=== PATIENT | male | born 1955 | race Caucasian/White ===

== ENCOUNTER 2016-12-15 12:37 | Observation (INO) | payer OTHER ==
[2016-12-15] MEDS ORDERED: Aspirin Low Dose CHEW TAB* 81 MG PO ONE (12:54)
[2016-12-15 13:24] LABS: Hematocrit 43 % (42-52); Hemoglobin 14.7 g/dl (14.0-18.0); Mean Corpuscular HGB Conc 34 g/dl (31-36); Mean Corpuscular Hemoglobin 29 pg (27-31); Mean Corpuscular Volume 83 fL (80-94); Mean Platelet Volume 7 um3 (7.4-10.4); Red Blood Count 5.17 10^6/ul (4.0-5.4); Red Cell Distribution Width 16 % (10.5-15); White Blood Count 7.5 10^3/ul (3.5-10.8)
--- NOTE | 2016-12-15 13:44 | RAD ---
Indication: Intermittent LEFT side chest pain since yesterday. History of tobacco use. Comparison: April 05, 2016 chest radiograph and May 05, [address] Technique: Upright AP 1311 hours Report: Mildly elevated lung volumes. No focal pulmonary lesion, compelling alveolar consolidation, pleural effusion, pneumothorax. Negative for cardiomegaly. Unremarkable central pulmonary vasculature. Accounting for LEFT convex curve of the mid to distal thoracic spine the mediastinal contours are unremarkable. Negative for free air beneath the diaphragm. No rib fracture evident. IMPRESSION: No evidence for acute intrathoracic disease. Elevated lung volumes suggest potential chronic obstructive pulmonary disease.
[2016-12-15 13:45] LABS: BUN/Creatinine Ratio 21.7 (8-20); EGFR African American 121.5 (>60); EGFR Non-African American 94.5 (>60); Globulin 2.7 g/dL (2-4); Potassium 3.8 mmol/L (3.5-5.0); Total Bilirubin 0.6 mg/dL (0.2-1.0); Total Protein 6.7 g/dL (6.4-8.9)
[2016-12-15] MEDS ORDERED: Acetaminophen TAB* 325 MG PO PRN (15:18)
[2016-12-15] MEDS ORDERED: traZODone TAB* 100 MG PO SCH (21:00)
[2016-12-15] MEDS ORDERED: Atorvastatin* 20 MG TAB PO SCH (21:00)
--- NOTE | 2016-12-15 23:05 | HP ---
CC: Dr. Sabine Skinner * HISTORY AND PHYSICAL: DATE OF ADMISSION: 12/15/16 PRIMARY CARE PROVIDER: Dr. Sabine Skinner. CONCRETE FOREMAN: Dr. Chandler. CHIEF COMPLAINT: Chest discomfort. HISTORY OF PRESENT ILLNESS: Mr. Juarez is a 61-year-old male with a known history of coronary artery disease, status post stenting in 2009; hyperlipidemia ; depression, who presented to the emergency room with complaints of chest discomfort. The patient states that this past Friday, he had what felt like bad gas. He states he felt it up in his back and then in his shoulder blades. Yesterday, he states that he was working in his yard and around the pool and felt very exhausted. He was unable to finish the work he needed to do. The patient states that today when finishing the work, he was, what he describes as , panting. He states that with that, he felt lightheaded and mild chest discomfort on the left side. The patient states that the chest discomfort will come anytime he does any activity, though it is usually even just minimal activity. He states that as soon as he sits down, the chest discomfort goes away. He denies any associated palpitations, diaphoresis, or nausea. The patient does state that this feels different than his ME, but does feel similar to the events leading up to his ME. PAST MEDICAL HISTORY: 1. Coronary artery disease, status post stenting, 2009. 2. Hyperlipidemia. 3. Depression. PAST SURGICAL HISTORY: 1. Laparoscopic appendectomy. 2. Deviated septum repair. 3. Left ear surgery. MEDICATIONS: 1. Bupropion 100 mg p.o. daily. 2. Sertraline 100 mg p.o. daily. 3. Aspirin 81 mg p.o. daily. 4. Trazodone 100 mg p.o. at bedtime. 5. Lipitor 20 mg p.o. q.h.s. ALLERGIES: No known drug allergies. FAMILY HISTORY: Dad at the age of 84 of heart disease. Mom at the age of 73 of cerebral hemorrhage. SOCIAL HISTORY: The patient is a former smoker of approximately 1 pack per day for 15 years. He quit greater than a year ago. He drinks alcohol rarely. 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 He is . He has 3 children. His , Jenny, is his healthcare proxy. REVIEW OF SYSTEMS: The patient denies any fevers, chills, or anorexia. He admits to chest discomfort and shortness of breath as above. No cough, no sputum production. No nausea, vomiting, abdominal pain, constipation, diarrhea , or hematochezia. No hematuria, no dysuria. No focal weakness or sensory loss. No sudden changes in vision. No dysphagia. No joint pains or muscle pains out of the ordinary. No rashes. He does admit to anxiety and depression. PHYSICAL EXAMINATION GENERAL: The patient is a well-developed, middle-aged male, sitting up in the bed, in no acute distress. VITAL SIGNS: Blood pressure 144/69, pulse 72, respirations 13, temp 98.2, and O2 sat 96% on room air. HEENT: Pupils are equal, they are round, they react to light. Extraocular muscles are intact. Oropharynx is clear. Oral mucosa is moist. There is no submandibular, cervical, or supraclavicular adenopathy. NECK: Thyroid is not enlarged. No thyroid nodules are noted. PULMONARY: Lungs are clear to auscultation bilaterally. CARDIAC: Normal S1, S2. Regular rate and rhythm. I do not appreciate any murmurs. There is no pain to palpation of the anterior chest wall. There is no lower extremity edema. ABDOMEN: Bowel sounds are present. Abdomen is soft, nontender, nondistended. MUSCULOSKELETAL: There is no cyanosis or clubbing of the digits. There is full active range of motion of all 4 extremities. NEURO: Cranial nerves II through XII are grossly intact. Sensation is intact to light touch throughout. Strength is 5/5 and symmetric in both upper and lower extremities bilaterally. PSYCH: The patient is alert. He is oriented x3. Affect appears appropriate. SKIN: Warm and dry. There are no rashes. DIAGNOSTIC STUDIES/LAB DATA: WBC 7.5, hemoglobin 14.7, hematocrit 43, platelets 176. D-dimer less than 200. Sodium 138, potassium 3.8, chloride 106 , CO2 25, BUN 18, creatinine 0.83, glucose 164, lactic acid 1.5, calcium 9.0. Bilirubin 0.6, AST 20, ALT 26, alk phos 40. Troponin 0. Albumin 4.0. EKG: Normal sinus rhythm without any acute ST-T wave abnormalities. Chest x-ray: No evidence for acute intrathoracic disease, elevated lung volumes suggesting potential chronic obstructive pulmonary disease. ASSESSMENT AND PLAN: Mr. Juarez is a 61-year-old male with a known history of coronary artery disease, past history of tobacco abuse, and hyperlipidemia, who presents to the emergency room with complaints of chest discomfort with activity. 1. Chest discomfort. I am very concerned about the patient's story. He states over the last of couple days, anytime he does any activity, he does develop chest discomfort. When he sits down, it goes away. The patient has a known history of coronary artery disease. His last catheterization report is not known to myself. The patient will be ruled out for myocardial infarction with serial troponins. If he rules out, he will undergo exercise nuclear stress test tomorrow. If he rules in or if the stress test is abnormal, biometrics consultant will be contacted. The patient will be maintained on his usual dose of aspirin and Lipitor. 2. Hyperlipidemia. Continue Lipitor. 3. Depression. Continue bupropion, sertraline, and trazodone. 4. DVT prophylaxis. According to the Adult Thrombosis Prophylaxis Risk Factor Assessment Guide, the patient has a total risk factor score of 1, making him low risk. Ambulation will be utilized as DVT prophylaxis. 5. Code status is full. TIME SPENT: Sixty-five minutes was spent admitting this patient. [id number]/[facility] #: [id number] KARMA
[2016-12-16] MEDS ORDERED: Aminophylline IV* 25 MG/ML 10 ML VIAL ONE (08:12)
[2016-12-16] MEDS ORDERED: Regadenoson* 0.4 MG/5 ML SYRINGE ONE (08:12)
[2016-12-16] MEDS ORDERED: Influenza VAC *QUAD* 2017-18* 0.5 ML SYRINGE IM ONE (09:00)
[2016-12-16] MEDS ORDERED: Aspirin EC Low Dose* 81 MG TAB.EC PO SCH (09:00)
[2016-12-16] MEDS ORDERED: buPROPion TAB* 100 MG PO SCH (09:00)
[2016-12-16] MEDS ORDERED: Sertraline* 100 MG TAB PO SCH (09:00)
--- NOTE | 2016-12-16 10:39 | RAD ---
HISTORY: Evaluate for ischemia, chest pain, shortness breath, previous MD, hyperlipidemia, cardiac catheterization, family history of heart disease COMPARISONS: None available at the time of dictation TECHNIQUE: A 1 day stress/rest myocardial perfusion study was performed, with exercise stress. The exercise portion was performed using the Eric protocol, for a total METs of 12.8. The stress portion was monitored by Dr. Chandler. Gated SPECT imaging was performed, with CT-based attenuation correction DOSE: Stress: Technetium 99m tetrofosmin, 25.15 millicuries, injected at 8:33 AM on December 16, 2016 Rest: Technetium 99m tetrofosmin, 10.73 millicuries, injected at 6:35 AM and December 16, 2016 Pharmacologic agent: None FINDINGS: CARDIAC MONITORING: Peak heart rate of 150 bpm, 94% of predicted. Borderline ST changes EF: 66 % TID: 1.02 MOTION: Normal motion, with normal wall thickening. PERFUSION: There is a small reversible defect of the anterior wall towards the base suggestive of ischemia. There is a fixed defect of inferior wall that resolves with attenuation correction suggestive of artifact OTHER: None IMPRESSION: SMALL REVERSIBLE PERFUSION DEFECT OF THE ANTERIOR WALL CONSISTENT WITH A SMALL AREA OF ISCHEMIA ASSESSMENT: LOW RISK. Based on imaging criteria from ACC/AHA 2002. Guideline Update for the Management of Patient's with Chronic Stable Angina, table 23. Noninvasive Risk Stratification.
[2016-12-16] MEDS ORDERED: Metoprolol Succinate XL TAB* 25 MG PO ONE (13:38)
[2016-12-16 13:57] VITALS: BP 110/68
--- NOTE | 2016-12-17 04:29 | DS ---
CC: Dr. Skinner; Dr. Chandler * DISCHARGE SUMMARY: DATE OF ADMISSION: 12/15/16 DATE OF DISCHARGE: 12/16/16 PRIMARY CARE PROVIDER: Dr. Skinner. DISCHARGE DIAGNOSIS: Chest pain with low probability cardiac stress test that did show a small area of ischemia in the anterior wall. At this point, the chest pain could be due to angina. SECONDARY DIAGNOSES: 1. History of coronary artery disease, status post stenting in 2009. 2. Hyperlipidemia. 3. Depression. 4. History of laparoscopic appendectomy. 5. Deviated septum repair. 6. Left ear surgery. MEDICATIONS AT DISCHARGE: Include: 1. Toprol-XL 25 mg daily. 2. Lipitor 20 mg daily. 3. Aspirin 81 mg daily. 4. Zoloft 100 mg daily. 5. Wellbutrin 100 mg daily. 6. Trazodone 100 mg at bedtime. LABORATORY DATA AND STUDIES PERFORMED DURING THE HOSPITAL STAY: Included: Troponins were 0 throughout the patient's hospital stay. The patient's D-dimer was below 200. The patient's treadmill cardiac stress test, the nuclear portion showed small reversible perfusion defect of the anterior wall consistent with a small area of ischemia with an EF noted to be at 66% and normal motion and normal wall thickening. It was assessed as low risk. The treadmill portion of the stress test showed that patient exercised for 11 minutes without any symptoms. He has some flattening of T-waves at the end of his stress test. His systolic pressures at the end of the stress test were 240. HOSPITALIZATION COURSE: Bowen Juarez is a 61-year-old male with history of coronary artery disease with cardiac stenting in 2009, who presented complaining of chest pain that occurred at the end of him putting down an outdoor pool for the season. Patient stated that he worked himself up all day. He was carrying multiple parts of the outside pool that included heavy ladders. At the end of the day, he stated that he felt "wasted." He also started experiencing chest pain that lasted minutes and stopped when he stopped his exercise. He came into the hospital for evaluation. Here, he was on the telemetry monitored bed without evidence of arrhythmias. His troponins continued to be 0 throughout his hospital stay and patient continued to be symptomatic. He underwent a cardiac stress test in the morning, which showed hypertensive response at the end of the stress test. The patient also had a small area of anterior ischemia visualized on the nuclear cardiac stress test. I discussed the case with Dr. Chandler, who recommended for the time being to continue treating patient medically and starting him on a beta- ronda. Patient was recommended to go home and do not perform any strenuous exercise until he sees Dr. Chandler within the next 2 weeks for followup. He was started on metoprolol with good response or if the heart rate remaining in the 70s and his blood pressure at 110/68 at discharge. PHYSICAL EXAMINATION: At discharge is unchanged from admission. [id number]/[facility] #: [id number] [facility]
== END 2016-12-16 17:50 | disposition home or self-care (01) ==
LOC: ED 12:37 → MEDTELE 14:55
PROVIDERS: ADMIT Hospitalist; ATTEND Internal Medicine
DX: R07.89 Other chest pain (principal); I25.9 Chronic ischemic heart disease, unspecified; I25.10 Atherosclerotic heart disease of native coronary artery without angina pectoris; I25.2 Old myocardial infarction; Z95.5 Presence of coronary angioplasty implant and graft; E78.5 Hyperlipidemia, unspecified; R42 Dizziness and giddiness; F32.9 Major depressive disorder, single episode, unspecified; Z79.899 Other long term (current) drug therapy; Z87.891 Personal history of nicotine dependence; Z23 Encounter for immunization
CPT/HCPCS: 36415; 71010; 78452; 80053; 83605; 84484; 85025; 85379; 90471; 90686; 93005; 93017; 99283; A9270-GY; A9502; G0008; G0378; J0280; J2785

== ENCOUNTER 2018-11-02 17:10 | Emergency (ER) | payer OTHER ==
[2018-11-02 17:21] VITALS: BP 152/86
--- OUTSIDE RECORDS SUMMARY | 2018-11-02 17:27 | XMS REPORT | Continuity of Care Document ---
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 [place] [address] Problems Active Problems Provider Date Hyperlipidemia Sabine Skinner M.D. Onset: 04/05/2016 Bipolar disorder Sabine Skinner M.D. Onset: 04/05/2016 Impaired fasting glycaemia Sabine Skinner M.D. Onset: 04/10/2016 Coronary atherosclerosis Sabine Skinner M.D. Onset: 02/15/2015 Family History Date Family Member(s) Observation Comments Father [place] Father Coronary Artery Disease (CAD) Mother Aneurysm Mother Chronic Obstructive Pulmonary Disease (COPD) Social History Type Date Description Comments Sex Unknown Lives With Spouse Occupation [employer] Tobacco Use Start: Unknown End: Former Cigarette Smoker Unknown ETOH Use Social Alcohol Recreational Drug Use Denies Drug Use Tobacco Use Start: Unknown End: Patient is a former smoker Unknown Smoking Status Reviewed: 10/20/18 Patient is a former smoker Exercise Type/Frequency Exercises rarely Allergies, Adverse Reactions, Alerts Description No Known Drug Allergies Medications Active Medications SIG Qnty Indications Ordering Date Provider Amoxicillin take one by 14tabs J03.90 Emma Diallo 10/15/2018 875mg Tablets mouth twice IDA Centeno daily for 7 days Tadalafil take 1 tablet by 6Tablet N52.8 Bruce Humphrey 09/11/2018 20mg Tablets mouth every day MD Germain as needed Sertraline HCL Take 1 Tablet 90tabs Bruce Humphrey 06/19/2018 100mg Daily MD Germain Tablets Vitamin D 1 by mouth every Unknown 2000Unit day Capsules non-childproof cap please Multivitamins 1 by mouth every Unknown Capsules day Atorvastatin Calcium 1 by mouth every 90tabs Bruce Humphrey 20mg day MD Germain Tablets Trazodone HCL Take 1 Tablet AT 90tabs Germain, 100mg Bedtime Bruce Louise MD Tablets Aspirin 1 by mouth every Unknown 81mg Tablets DR day History Medications Aspirin Ec 1 tab by mouth Sabine Skinner, 06/07/2016 - 325mg Tablets DR every day M.DTammy 12/19/2016 Azithromycin 2 tabs today, 6tabs R05 Sabine Skinner, 04/05/2016 - 250mg Tablets then 1 tab daily M.D. 06/07/2016 for next 4 days Cialis 1 tablet 30 min 10tabs N52.8 Kathi Potter, 02/15/2016 - 20mg Tablets before sexual [facility] 12/19/2016 activity, will last 36 hr Wellbutrin XL 1 by mouth every 30tabs Bruce Vásquez 01/23/2016 - 300mg Tablets day Joey Elias 12/19/2016 ER 24HR Cialis take 1 tablet 30tabs N52.8 Kathi Potter, 12/02/2015 - 5mg Tablets every day as [facility] 02/15/2016 directed Cheratussin ac 1-2 teaspoon 120ml Kathi Potter, 05/05/2015 - 100-10mg/5ML every 6h [facility] 05/24/2015 Solution Azithromycin take 2 tablets by 12tabs J01.90 Kathi Potter, 05/02/2015 - 250mg Tablets mouth x 3d then [facility] 05/24/2015 take 1 tablet daily for next 6 days Tramadol HCL 1-2 by mouth 30tabs Chanda 03/01/2015 - 50mg Tablets every 6 hours as Bayron, 05/24/2015 needed Afnp-C Cyclobenzaprine HCL 1 by mouth three 30tabs M54.5 Chanda 02/28/2015 - 10mg times a day as Bayron, 03/10/2015 Tablets needed Afnp-C Physical Therapy treatment and M54.5 Chanda 02/28/2015 - evaluation of ellie Verma, 05/24/2015 back pain Afnp-C Vitamin C 1 by mouth daily Yaya Silvestre 02/15/2015 - Joey 12/01/2015 Wellbutrin SR 1 by mouth qd 30tabs Unknown - 300 Tablets 01/23/2016 ER 12HR Zoloft 1 by mouth every 90tabs Emma Diallo - 100mg Tablets day IDA Centeno 06/19/2018 Latuda 1 by mouth every Unknown - 40mg Tablets day 05/02/2015 Atorvastatin Calcium 1 by mouth every Unknown - day 03/18/2016 Tablets Trazodone HCL take 1 tablet at 30tabs Bruce Vásquez - 300mg Tablets bedtime Joey Elias 03/18/2016 Toprol XL 1 by mouth every Unknown - 25mg Tablets ER day 09/11/2018 24HR Wellbutrin SR 1 by mouth every Unknown - 150mg Tablets day 09/11/2018 ER 12HR Immunizations CPT Code Status Date Vaccine Lot # [id number] Given 06/07/2016 Zostivax [id number] Given 06/07/2016 Tdap Tetanus, W Pertussis [id number] Given 01/10/2016 Influenza Vac, Quadrivalent, Slit Virus, Im Vital Signs Date Vital Result Comment 10/20/2018 4:28pm BP Systolic 138 mmHg BP Diastolic 70 mmHg Heart Rate 82 /min Body Temperature 98.8 F Respiratory Rate 16 /min Height 69.25 inches 5'9.25" Weight 174.00 lb BMI (Body Mass Index) 25.5 kg/m2 10/15/2018 4:55pm BP Systolic 110 mmHg BP Diastolic 60 mmHg Heart Rate 72 /min Body Temperature 99.6 F Respiratory Rate 16 /min Height 69.25 inches 5'9.25" Weight 176.00 lb BMI (Body Mass Index) 25.8 kg/m2 09/11/2018 3:05pm BP Systolic 110 mmHg BP Diastolic 70 mmHg Heart Rate 72 /min Body Temperature 98.8 F Respiratory Rate 17 /min Height 69.25 inches 5'9.25" Weight 173.00 lb BMI (Body Mass Index) 25.4 kg/m2 06/19/2017 4:06pm BP Systolic 142 mmHg BP Diastolic 76 mmHg Heart Rate 76 /min Body Temperature 97.9 F Respiratory Rate 16 /min Height 69.5 inches 5'9.50" Weight 189.25 lb BMI (Body Mass Index) 27.5 kg/m2 02/17/2017 1:48pm BP Systolic 142 mmHg BP Diastolic 64 mmHg Heart Rate 72 /min Body Temperature 98.2 F Respiratory Rate 16 /min Height 69.5 inches 5'9.50" Weight 184.00 lb BMI (Body Mass Index) 26.8 kg/m2 12/19/2016 11:22am BP Systolic 118 mmHg BP Diastolic 64 mmHg Heart Rate 60 /min Body Temperature 98.4 F Respiratory Rate 16 /min Height 69.5 inches 5'9.50" Weight 179.38 lb BMI (Body Mass Index) 26.1 kg/m2 06/07/2016 1:32pm BP Systolic 140 mmHg BP Diastolic 80 mmHg Heart Rate 76 /min Body Temperature 98.9 F Respiratory Rate 16 /min Height 69.5 inches 5'9.50" Weight 182.25 lb BMI (Body Mass Index) 26.5 kg/m2 04/05/2016 3:14pm BP Systolic 156 mmHg BP Diastolic 70 mmHg Heart Rate 90 /min Body Temperature 98.1 F Height 70 inches 5'10" Weight 185.50 lb BMI (Body Mass Index) 26.6 kg/m2 12/02/2015 9:53am BP Systolic 140 mmHg BP Diastolic 80 mmHg Heart Rate 66 /min Body Temperature 97.3 F Height 70 inches 5'10" Weight 176.00 lb BMI (Body Mass Index) 25.3 kg/m2 05/02/2015 3:14pm BP Systolic 136 mmHg BP Diastolic 70 mmHg Heart Rate 80 /min Body Temperature 98.8 F Respiratory Rate 16 /min Height 70 inches 5'10" Weight 177.00 lb BMI (Body Mass Index) 25.4 kg/m2 02/28/2015 11:27am BP Systolic 128 mmHg BP Diastolic 66 mmHg Heart Rate 68 /min Body Temperature 97.5 F Height 70 inches 5'10" Weight 180.00 lb BMI (Body Mass Index) 25.8 kg/m2 02/15/2015 2:19pm BP Systolic 134 mmHg BP Diastolic 64 mmHg Heart Rate 78 /min Body Temperature 99.2 F Respiratory Rate 16 /min Height 70 inches 5'10" Weight 176.00 lb BMI (Body Mass Index) 25.3 kg/m2 Results Test Date Facility Test Result H/L Range Note Laboratory test 10/15/2018 [facility] Quickstrep negative Negative finding (607)- - Comp Metabolic 03/28/2018 [facility] Sodium 140 mmol/L N 135-145 Panel Potassium 4.4 mmol/L N 3.5-5.0 Chloride 104 mmol/L N 101-111 Co2 Carbon Dioxide 31 mmol/L N 22-32 Anion Gap 5 mmol/L N 2-11 Glucose 88 mg/dL N 70-100 Blood Urea Nitrogen 16 mg/dL N 6-24 Creatinine 0.84 mg/dL N 0.67-1.17 BUN/Creatinine Ratio 19.0 N 8-20 Calcium 9.3 mg/dL N 8.6-10.3 Total Protein 6.8 g/dL N 6.4-8.9 Albumin 4.4 g/dL N 3.2-5.2 Globulin 2.4 g/dL N 2-4 Albumin/Globulin Ratio 1.8 N 1-3 Total Bilirubin 0.90 mg/dL N 0.2-1.0 Alkaline Phosphatase 54 U/L N 34-104 Alt 37 U/L N 7-52 Ast 25 U/L N 13-39 Egfr Non- 92.9 >60 Egfr 112.4 >60 1 Lipid Profile (Trig/Chol/HDL) 03/28/2018 [facility] Triglycerides 150 mg/dL 2 Cholesterol 132 mg/dL 3 HDL Cholesterol 29.8 mg/dL 4 LDL Cholesterol 72 mg/dL 5 Laboratory test finding 03/28/2018 [facility] Creatine Kinase(CK) 161 U/L N 10- 223 Lipid Profile (Trig/Chol/HDL) 04/03/2017 [facility] Triglycerides 163 mg/dL 6 Cholesterol 164 mg/dL 7 HDL Cholesterol 33.5 mg/dL 8 LDL Cholesterol 98 mg/dL 9 Laboratory test finding 04/03/2017 [facility] Alt (SGPT) 34 U/L N 7-52 Ast (Sgot) 21 U/L N 13-39 Laboratory test 12/15/2016 [facility] D Dimer Quantitative < 200 ng/mL N Less Than 230 10 finding Comp Metabolic 12/15/2016 [facility] Sodium 138 mmol/L N 133-145 Panel Potassium 3.8 mmol/L N 3.5-5.0 Chloride 106 mmol/L N 101-111 Co2 Carbon Dioxide 25 mmol/L N 22-32 Anion Gap 7 mmol/L N 2-11 Glucose 164 mg/dL High 70-100 Blood Urea Nitrogen 18 mg/dL N 6-24 Creatinine 0.83 mg/dL N 0.67-1.17 BUN/Creatinine Ratio 21.7 High 8-20 Calcium 9.0 mg/dL N 8.6-10.3 Total Protein 6.7 g/dL N 6.4-8.9 Albumin 4.0 g/dL N 3.2-5.2 Globulin 2.7 g/dL N 2-4 Albumin/Globulin Ratio 1.5 N 1-3 Total Bilirubin 0.60 mg/dL N 0.2-1.0 Alkaline Phosphatase 40 U/L N 34-104 Alt 26 U/L N 7-52 Ast 20 U/L N 13-39 Egfr Non- 94.5 N >60 Egfr 121.5 N >60 11 Laboratory test finding 12/15/2016 [facility] Troponin I 0.00 ng/mL N <0.04 Lactic Acid 1.5 mmol/L N 0.5-2.0 12 CBC Auto Diff 12/15/2016 [facility] White Blood Count 7.5 10^3/uL N 3.5-10.8 Red Blood Count 5.17 10^6/uL N 4.0-5.4 Hemoglobin 14.7 g/dL N 14.0-18.0 Hematocrit 43 % N 42-52 Mean Corpuscular Volume 83 fL N 80-94 Mean Corpuscular Hemoglobin 29 pg N 27-31 Mean Corpuscular HGB Conc 34 g/dL N 31-36 Red Cell Distribution Width 16 % High 10.5-15 Platelet Count 176 10^3/uL N 150-450 Mean Platelet Volume 7 um3 Low 7.4-10.4 Abs Neutrophils 5.0 10^3/uL N 1.5-7.7 Abs Lymphocytes 1.4 10^3/uL N 1.0-4.8 Abs Monocytes 0.4 10^3/uL N 0-0.8 Abs Eosinophils 0.6 10^3/uL N 0-0.6 Abs Basophils 0.1 10^3/uL N 0-0.2 Abs Nucleated RBC 0 10^3/uL N Granulocyte % 66.6 % N 38-83 Lymphocyte % 18.8 % Low 25-47 Monocyte % 5.5 % N 1-9 Eosinophil % 7.9 % High 0-6 Basophil % 1.2 % N 0-2 Nucleated Red Blood Cells % 0 N Laboratory test finding 06/07/2016 [place] Emma(a) PSA 2.3 ng/mL 0.0 -4.0 Complete Blood Count 06/07/2016 [place] Emma(a) WBC 7.9 x10^3/UL 3.6 -9.6 RBC 5.40 x10^6/UL 3.90-5.70 HGB 15.1 g/dL 12.1-17.2 HCT 46 % 36-50 MCV 86.0 fL 82.2-97.4 MCH 27.9 pg 27.6-33.3 MCHC 32.5 g/dL Low 33.0-35.5 RDW 15.1 % High 11.6-13.7 PLT 232 x10^3/UL 150-400 MPV 5.7 fL Low 7.4-10.4 Gran # 5.1 x10^3/UL 1.5-7.2 Lymph# 1.9 x10^3/UL 0.7-4.9 [place]# 0.9 x10^3/UL 0.1-0.9 Gran % 63.3 % 42.2-75.2 Lymph % 25.2 % 20.5-51.1 [place]% 11.5 % High 1.7-9.3 Comprehensive Metabolic 06/07/2016 Oswaldo Emma(fma) Sodium 139 mEq/L 134-149 Prof Potassium 4.2 mEq/L 3.6-5.5 Chloride 99 mEq/L 94-112 Carbon Dioxide 28 mEq/L 21-32 Glucose 87 mg/dL 70-105 BUN 16 mg/dL 6-26 Creatinine 0.7 mg/dL 0.6-1.4 BUN/Creat Ratio 22.9 CALC 8.0-36.0 Calcium 9.8 mg/dL 8.6-10.2 Total Protein 7.9 g/dL 6.4-8.3 Albumin 4.8 g/dL 3.8-5.5 Globulin 3.1 g/dL 2.0-4.8 A/G Ratio 1.5 CALC 0.6-2.3 Alk. Phosphatase 45 U/L 22-95 Alt (SGPT) 35 U/L 7-35 Ast (Sgot) 27 U/L 5-34 Total Bilirubin 0.4 mg/dL 0.2-1.3 GFR Non- >60 ml/min/1.73m^ >=60 GFR >60 ml/min/1.73m^ >=60 Laboratory test finding 05/05/2016 [facility] Lipase 16 U/L N 11.0-82.0 C Reactive Protein 52.77 mg/L High < 5.00 13 Comp Metabolic Panel 05/05/2016 [facility] Sodium 133 mmol/L N 133-145 Potassium 4.1 mmol/L N 3.5-5.0 Chloride 99 mmol/L Low 101-111 Co2 Carbon Dioxide 26 mmol/L N 22-32 Anion Gap 8 mmol/L N 2-11 Glucose 157 mg/dL High 70-100 Blood Urea Nitrogen 16 mg/dL N 6-24 Creatinine 0.77 mg/dL N 0.67-1.17 BUN/Creatinine Ratio 20.8 High 8-20 Calcium 9.4 mg/dL N 8.6-10.3 Total Protein 7.6 g/dL N 6.4-8.9 Albumin 4.4 g/dL N 3.2-5.2 Globulin 3.2 g/dL N 2-4 Albumin/Globulin Ratio 1.4 N 1-3 Total Bilirubin 0.80 mg/dL N 0.2-1.0 Alkaline Phosphatase 54 U/L N 34-104 Alt 25 U/L N 7-52 Ast 17 U/L N 13-39 Egfr Non- 103.1 N >60 Egfr 132.5 N >60 14 Laboratory test 05/05/2016 [facility] Lactic Acid 1.5 mmol/L N 0.5-2.0 15 finding CBC Auto Diff 05/05/2016 [facility] White Blood Count 14.2 10^3/uL High 3.5- 10.8 Red Blood Count 5.40 10^6/uL N 4.0-5.4 Hemoglobin 14.9 g/dL N 14.0-18.0 Hematocrit 44 % N 42-52 Mean Corpuscular Volume 82 fL N 80-94 Mean Corpuscular Hemoglobin 28 pg N 27-31 Mean Corpuscular HGB Conc 34 g/dL N 31-36 Red Cell Distribution Width 15 % N 10.5-15 Platelet Count 173 10^3/uL N 150-450 Mean Platelet Volume 7 um3 Low 7.4-10.4 Abs Neutrophils 11.3 10^3/uL High 1.5-7.7 Abs Lymphocytes 1.3 10^3/uL N 1.0-4.8 Abs Monocytes 1.0 10^3/uL High 0-0.8 Abs Eosinophils 0.5 10^3/uL N 0-0.6 Abs Basophils 0.1 10^3/uL N 0-0.2 Abs Nucleated RBC 0.02 10^3/uL N Granulocyte % 79.9 % N 38-83 Lymphocyte % 8.9 % Low 25-47 Monocyte % 7.0 % N 1-9 Eosinophil % 3.7 % N 0-6 Basophil % 0.5 % N 0-2 Nucleated Red Blood Cells % 0.1 N CBC Auto Diff 04/06/2016 [facility] White Blood Count 9.8 10^3/uL N 3.5-10.8 Red Blood Count 5.31 10^6/uL N 4.0-5.4 Hemoglobin 14.6 g/dL N 14.0-18.0 Hematocrit 44 % N 42-52 Mean Corpuscular Volume 82 fL N 80-94 Mean Corpuscular Hemoglobin 28 pg N 27-31 Mean Corpuscular HGB Conc 34 g/dL N 31-36 Red Cell Distribution Width 15 % N 10.5-15 Platelet Count 171 10^3/uL N 150-450 Mean Platelet Volume 7 um3 Low 7.4-10.4 Abs Neutrophils 5.8 10^3/uL N 1.5-7.7 Abs Lymphocytes 2.1 10^3/uL N 1.0-4.8 Abs Monocytes 0.7 10^3/uL N 0-0.8 Abs Eosinophils 1.0 10^3/uL High 0-0.6 Abs Basophils 0.1 10^3/uL N 0-0.2 Abs Nucleated RBC 0 10^3/uL N Granulocyte % 58.9 % N 38-83 Lymphocyte % 21.8 % Low 25-47 Monocyte % 7.3 % N 1-9 Eosinophil % 10.7 % High 0-6 Basophil % 1.3 % N 0-2 Nucleated Red Blood Cells % 0 N Comp Metabolic Panel 04/06/2016 [facility] Sodium 138 mmol/L N 133-145 Potassium 4.3 mmol/L N 3.5-5.0 Chloride 102 mmol/L N 101-111 Co2 Carbon Dioxide 30 mmol/L N 22-32 Anion Gap 6 mmol/L N 2-11 Glucose 95 mg/dL N 70-100 Blood Urea Nitrogen 20 mg/dL N 6-24 Creatinine 0.87 mg/dL N 0.67-1.17 BUN/Creatinine Ratio 23.0 High 8-20 Calcium 9.1 mg/dL N 8.6-10.3 Total Protein 6.8 g/dL N 6.4-8.9 Albumin 4.2 g/dL N 3.2-5.2 Globulin 2.6 g/dL N 2-4 Albumin/Globulin Ratio 1.6 N 1-3 Total Bilirubin 0.70 mg/dL N 0.2-1.0 Alkaline Phosphatase 47 U/L N 34-104 Alt 48 U/L N 7-52 Ast 26 U/L N 13-39 Egfr Non- 89.8 N >60 Egfr 115.5 N >60 16 Lipid Profile (Trig/Chol/HDL) 04/06/2016 [facility] Triglycerides 222 mg/dL N 17 Cholesterol 151 mg/dL N 18 HDL Cholesterol 29.6 mg/dL N 19 LDL Cholesterol 77 mg/dL N 20 Laboratory test 04/06/2016 [facility] TSH (Thyroid Stim 2.17 mcIU/mL N 0.34- 5.60 finding Horm) Lipid Profile 04/05/2016 [place] Emma(fma) Cholesterol 141 mg/dL 120- 200 Triglycerides 477 mg/dL High 30-200 HDL Cholesterol 30 mg/dL 30-70 LDL (Calculated) 16 CALC 0-129 VLDL Cholesterol 95 mg/dL High 0-50 HDL Risk Factor 4.7 CALC High 0.0-4.4 Comprehensive Metabolic 04/05/2016 [place] Emma(fma) Sodium 138 mEq/L 134-149 Prof Potassium 4.4 mEq/L 3.6-5.5 Chloride 100 mEq/L 94-112 Carbon Dioxide 26 mEq/L 21-32 Glucose 128 mg/dL High 70-105 BUN 22 mg/dL 6-26 Creatinine 0.9 mg/dL 0.6-1.4 BUN/Creat Ratio 24.4 CALC 8.0-36.0 Calcium 9.4 mg/dL 8.6-10.2 Total Protein 7.2 g/dL 6.4-8.3 Albumin 4.1 g/dL 3.8-5.5 Globulin 3.1 g/dL 2.0-4.8 A/G Ratio 1.3 CALC 0.6-2.3 Alk. Phosphatase 54 U/L 22-95 Alt (SGPT) 69 U/L High 7-35 Ast (Sgot) 34 U/L 5-34 Total Bilirubin 0.3 mg/dL 0.2-1.3 GFR Non- >60 ml/min/1.73m^ >=60 GFR >60 ml/min/1.73m^ >=60 Complete Blood Count 04/05/2016 Oswaldo Carter([facility]) WBC 9.1 x10^3/UL 3.6 -9.6 RBC 5.04 x10^6/UL 3.90-5.70 HGB 14.4 g/dL 12.1-17.2 HCT 42 % 36-50 MCV 84.0 fL 82.2-97.4 MCH 28.6 pg 27.6-33.3 MCHC 34.2 g/dL 33.0-35.5 RDW 15.4 % High 11.6-13.7 PLT 199 x10^3/UL 150-400 MPV 5.6 fL Low 7.4-10.4 Gran # 6.4 x10^3/UL 1.5-7.2 Lymph# 1.9 x10^3/UL 0.7-4.9 [place]# 0.8 x10^3/UL 0.1-0.9 Gran % 69.5 % 42.2-75.2 Lymph % 21.0 % 20.5-51.1 [place]% 9.5 % High 1.7-9.3 Laboratory test finding 04/05/2016 Oswaldo Carter([facility]) TSH 1.70 mIU/L 0.50-6.00 LDL, Direct 102 mg/dL 0-130 Laboratory test 04/05/2016 [facility] Hemoglobin A1c (Fma) 5.5 % 4.1-5.7 finding (607)- - 1 Because ethnic data is not always readily available, this report includes an eGFR for both -Americans and non- Americans. The National Kidney Disease Education Program (NKDEP) does not endorse the use of the MDRD equation for patients that are not between the ages of 18 and 70, are , have extremes of body size, muscle mass, or nutritional status, or are non- or non-. According to the National Kidney Foundation, irrespective of diagnosis, the stage of the disease is based on the level of kidney function: Stage Description GFR(mL/min/1.73 m(2)) 1 Kidney damage with normal or decreased GFR 90 2 Kidney damage with mild decrease in GFR 60-89 3 Moderate decrease in GFR 30-59 4 Severe decrease in GFR 15-29 5 Kidney failure <15 (or dialysis) 2 Desirable: <150 Borderline High: 150-199 High: 200-499 Very High: >500 3 Desirable: <200 Borderline High: 200-239 High: >239 4 Low: <40 Desirable: 40-60 High: >60 5 Desirable: <100 Near Optimal: 100-129 Borderline High: 130-159 High: 160-189 Very High: >189 6 Desirable: <150 Borderline High: 150-199 High: 200-499 Very High: >500 7 Desirable: <200 Borderline High: 200-239 High: >239 8 Low: <40 Desirable: 40-60 High: >60 9 Desirable: <100 Near Optimal: 100-129 Borderline High: 130-159 High: 160-189 Very High: >189 10 Please note: The following may produce a false positive D Dimer test: - Rheumatoid factor greater than 60 IU/ml - Plasma hemoglobin greater than 0.05 gm/dl - Bilirubin greater than 50 mg/dl - Lipids greater than 1000 mg/dl - FDP greater than 20 ug/ml 11 Because ethnic data is not always readily available, this report includes an eGFR for both -Americans and non- Americans. The National Kidney Disease Education Program (NKDEP) does not endorse the use of the MDRD equation for patients that are not between the ages of 18 and 70, are , have extremes of body size, muscle mass, or nutritional status, or are non- or non-. According to the National Kidney Foundation, irrespective of diagnosis, the stage of the disease is based on the level of kidney function: Stage Description GFR(mL/min/1.73 m(2)) 1 Kidney damage with normal or decreased GFR 90 2 Kidney damage with mild decrease in GFR 60-89 3 Moderate decrease in GFR 30-59 4 Severe decrease in GFR 15-29 5 Kidney failure <15 (or dialysis) 12 [facility] Severe Sepsis and Septic Shock Management Bundle Measure requires all lactic acids initially measuring >2.0 mmol/L be repeated. 13 Acute inflammation: >10.00 14 Because ethnic data is not always readily available, this report includes an eGFR for both -Americans and non- Americans. The National Kidney Disease Education Program (NKDEP) does not endorse the use of the MDRD equation for patients that are not between the ages of 18 and 70, are , have extremes of body size, muscle mass, or nutritional status, or are non- or non-. According to the National Kidney Foundation, irrespective of diagnosis, the stage of the disease is based on the level of kidney function: Stage Description GFR(mL/min/1.73 m(2)) 1 Kidney damage with normal or decreased GFR 90 2 Kidney damage with mild decrease in GFR 60-89 3 Moderate decrease in GFR 30-59 4 Severe decrease in GFR 15-29 5 Kidney failure <15 (or dialysis) 15 [facility] Severe Sepsis and Septic Shock Management Bundle Measure requires all lactic acids initially measuring >2.0 mmol/L be repeated. 16 Because ethnic data is not always readily available, this report includes an eGFR for both -Americans and non- Americans. The National Kidney Disease Education Program (NKDEP) does not endorse the use of the MDRD equation for patients that are not between the ages of 18 and 70, are , have extremes of body size, muscle mass, or nutritional status, or are non- or non-. According to the National Kidney Foundation, irrespective of diagnosis, the stage of the disease is based on the level of kidney function: Stage Description GFR(mL/min/1.73 m(2)) 1 Kidney damage with normal or decreased GFR 90 2 Kidney damage with mild decrease in GFR 60-89 3 Moderate decrease in GFR 30-59 4 Severe decrease in GFR 15-29 5 Kidney failure <15 (or dialysis) 17 Desirable <150 Borderline high 150-199 High 200-499 Very High >500 18 Desirable <200 Borderline high 200-239 High >239 19 Low <40 Desirable: 40-60 High: >60 20 Desirable: <100 mg/dL Near Optimal: 100-129 mg/dL Borderline High: 130-159 mg/dL High: 160-189 mg/dL Very High: >189 mg/dL Procedures Date Code Description Status 04/07/2012 [id number] Colonoscopy Completed Encounters Type Date Location Provider Dx Diagnosis Office Visit 10/15/2018 Main Office Emma Centeno, J03.90 Acute tonsillitis, 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 Office Visit 09/11/2018 Main Office Bruce Hupmhrey Z00.00 Encntr for general 3:00p MD Germain adult medical exam w/o abnormal findings N52.8 Other male erectile dysfunction Office Visit 06/19/2017 4:20p Main Office Bruce Humphrey F31.9 Bipolar disorder, MD Germain unspecified Office Visit 02/17/2017 2:00p [facility] Chanda Verma J06.9 Acute upper Office Afnp-C respiratory infection, unspecified R05 Cough Office Visit 12/19/2016 11:20a Main Office Sabine Skinner, I25.118 Athscl heart Joey disease of [place] cor art w oth ang pctrs Office Visit 06/07/2016 1:40p [facility] Sabine Skinner Z00.00 Encntr for Joey general adult medical exam w/o abnormal findings E78.5 Hyperlipidemia, unspecified F31.9 Bipolar disorder, unspecified R73.01 Impaired fasting glucose R03.0 Elevated blood-pressure reading, w/o diagnosis of htn Z23 Encounter for immunization Office Visit 04/05/2016 3:20p [facility] Sabine Skinner M.D. R05 Cough M54.5 Low back pain E78.5 Hyperlipidemia, unspecified F31.9 Bipolar disorder, unspecified E78.1 Pure hyperglyceridemia R73.01 Impaired fasting glucose Office Visit 12/02/2015 10:00a Main Office Kathi Potter, N52.8 Other male erectile [employer]ER dysfunction Office Visit 05/02/2015 3:00p Main Office Kathi Potter, J01.90 Acute sinusitis, [employer]AGE [employer]ER unspecified Office Visit 02/28/2015 11:00a Main Office Chanda M54.5 Low back pain Bayron Nadineida-Jabari Office Visit 02/15/2015 2:20p Main Office Yaya Silvestre M.D. Z00.00 Encntr for general adult medical exam w/o abnormal findings Plan of Treatment 10/20/2018 - [place] Bayron Nadineida-CJ02.9 Acute pharyngitis, unspecifiedAllComments:Medication Management Patient Understands medications he' s taking? Yes No Are there Barriersto Adherence? Yes No Has the patient been asked about herbal supplements and therapies, and OTC meds? Yes No Care Plan1. Patient has been queried about patient's goals/ preferences and functional/lifestyle goals at relevant visits. If relevant, describe: na2. Treatment goals asexplained to the patient: abovecontinued resolution 3. Are there barriers to meeting treatment goals? Yes No If Yes, please describe:4. Self-Management goals as described to the patient: Yes No clinically doubt thrush , coating seems more related to the illness in general call if sore throat not completely resolved over next week , or any worsening sx
--- OUTSIDE RECORDS SUMMARY | 2018-11-02 17:27 | XMS REPORT | Continuity of Care Document ---
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 [place] [address] Problems Active Problems Provider Date Hyperlipidemia Sabine Skinner M.D. Onset: 04/05/2016 Bipolar disorder Sabine Skinner M.D. Onset: 04/05/2016 Impaired fasting glycaemia Sabine Skinner M.D. Onset: 04/10/2016 Coronary atherosclerosis Sabine Skinner M.D. 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 12/19/2016 Azithromycin 2 tabs today, 6tabs R05 Sabine Skinner, 04/05/2016 - 250mg Tablets then 1 tab daily M.D. 06/07/2016 for next 4 days Cialis 1 tablet 30 min 10tabs N52.8 Kathi Potter, 02/15/2016 - 20mg Tablets before sexual [facility] 12/19/2016 activity, will last 36 hr Wellbutrin XL 1 by mouth every 30tabs Bruce Vásquez 01/23/2016 - 300mg Tablets day Joey Elias 12/19/2016 ER 24HR Cialis take 1 tablet 30tabs N52.8 Kathi Potter, 12/02/2015 - 5mg Tablets every day as [facility] 02/15/2016 directed Cheratussin ac 1-2 teaspoon 120ml Kathi Potter, 05/05/2015 - 100-10mg/5ML every 6h [facility] 05/24/2015 Solution Azithromycin take 2 tablets by 12tabs J01.90 Kathi Potter, 05/02/2015 - 250mg Tablets mouth x 3d then [facility] 05/24/2015 take 1 tablet daily for next 6 days Tramadol HCL 1-2 by mouth 30tabs Chanda 03/01/2015 - 50mg Tablets every 6 hours as [place] 05/24/2015 needed Afnp-C Cyclobenzaprine HCL 1 by mouth three 30tabs M54.5 Chanda 02/28/2015 - 10mg times a day as [place] 03/10/2015 Tablets needed Afnp-C Physical Therapy treatment and M54.5 Chanda 02/28/2015 - evaluation of ellie Verma, 05/24/2015 back pain Afnp-C Vitamin C 1 by mouth daily Yaya Silvestre, 02/15/2015 - Joey 12/01/2015 Wellbutrin SR 1 by mouth qd 30tabs Unknown - 300 Tablets 01/23/2016 ER 12HR Zoloft 1 by mouth every 90tabs Emma Diallo - 100mg Tablets day IDA Centeno 06/19/2018 Latuda 1 by mouth every Unknown - 40mg Tablets day 05/02/2015 Atorvastatin Calcium 1 by mouth every Unknown - day 03/18/2016 Tablets Trazodone HCL take 1 tablet at 30tabs rBuce Vásquez - 300mg Tablets bedtime Joey Elias 03/18/2016 Toprol XL 1 by mouth every Unknown - 25mg Tablets ER day 09/11/2018 24HR Wellbutrin SR 1 by mouth every Unknown - 150mg Tablets day 09/11/2018 ER 12HR Immunizations CPT Code Status Date Vaccine Lot # [id number] Given 06/07/2016 Zostivax [id number] Given 06/07/2016 Tdap Tetanus, W Pertussis [id number] Given 01/10/2016 Influenza Vac, Quadrivalent, Slit Virus, Im Vital Signs Date Vital Result Comment 10/15/2018 4:55pm BP Systolic 110 mmHg BP [...] Date Facility Test Result H/L Range Note Comp Metabolic Panel 03/28/2018 [facility] Sodium 140 mmol/L N 135-145 Potassium 4.4 mmol/L N 3.5-5.0 Chloride 104 [...] 112.4 >60 1 Lipid Profile (Trig/Chol/HDL) 03/28/2018 [facility] Triglycerides 150 mg/dL 2 Cholesterol 132 mg/dL 3 HDL Cholesterol 29.8 mg/dL 4 LDL Cholesterol 72 mg/dL 5 Laboratory test finding 03/28/2018 [facility] Creatine Kinase(CK) 161 U/L N 10- 223 Lipid Profile (Trig/Chol/HDL) 04/03/2017 [facility] Triglycerides 163 mg/dL 6 Cholesterol 164 mg/dL 7 HDL Cholesterol 33.5 mg/dL 8 LDL Cholesterol 98 mg/dL 9 Laboratory test finding 04/03/2017 [facility] Alt (SGPT) 34 U/L N 7-52 Ast (Sgot) 21 U/L N 13-39 Laboratory test 12/15/2016 [facility] D Dimer Quantitative < 200 ng/mL N Less Than 230 10 finding Comp Metabolic 12/15/2016 [facility] Sodium 138 mmol/L N 133-145 Panel Potassium [...] N >60 11 Laboratory test finding 12/15/2016 [facility] Troponin I 0.00 ng/mL N <0.04 Lactic Acid 1.5 mmol/L N 0.5-2.0 12 CBC Auto Diff 12/15/2016 [facility] White Blood Count 7.5 10^3/uL N 3.5-10.8 [...] 0 N Laboratory test finding 06/07/2016 [place] Emma(fma) PSA 2.3 ng/mL 0.0 -4.0 Complete Blood Count 06/07/2016 [place] Emma(fma) WBC 7.9 x10^3/UL 3.6 -9.6 RBC 5.40 x10^6/UL 3.90-5.70 HGB 15.1 g/dL 12.1-17.2 HCT 46 % 36-50 MCV 86.0 fL 82.2-97.4 MCH 27.9 pg 27.6-33.3 MCHC 32.5 g/dL Low 33.0-35.5 RDW 15.1 % High 11.6-13.7 PLT 232 x10^3/UL 150-400 MPV 5.7 fL Low 7.4-10.4 Gran # 5.1 x10^3/UL 1.5-7.2 Lymph# 1.9 x10^3/UL 0.7-4.9 [place]# 0.9 x10^3/UL 0.1-0.9 Gran % 63.3 % 42.2-75.2 Lymph % 25.2 % 20.5-51.1 [place]% 11.5 % High 1.7-9.3 Comprehensive Metabolic 06/07/2016 [place] Emma(fma) Sodium 139 mEq/L 134-149 Prof Potassium [...] >60 ml/min/1.73m^ >=60 Laboratory test finding 05/05/2016 [facility] Lipase 16 U/L N 11.0-82.0 C Reactive Protein 52.77 mg/L High < 5.00 13 Comp Metabolic Panel 05/05/2016 [facility] Sodium 133 mmol/L N 133-145 Potassium 4.1 [...] 132.5 N >60 14 Laboratory test 05/05/2016 [facility] Lactic Acid 1.5 mmol/L N 0.5-2.0 15 finding CBC Auto Diff 05/05/2016 [facility] White Blood Count 14.2 10^3/uL High 3.5- [...] % 0.1 N CBC Auto Diff 04/06/2016 [facility] White Blood Count 9.8 10^3/uL N 3.5-10.8 [...] % 0 N Comp Metabolic Panel 04/06/2016 [facility] Sodium 138 mmol/L N 133-145 Potassium 4.3 [...] N >60 16 Lipid Profile (Trig/Chol/HDL) 04/06/2016 [facility] Triglycerides 222 mg/dL N 17 Cholesterol 151 mg/dL N 18 HDL Cholesterol 29.6 mg/dL N 19 LDL Cholesterol 77 mg/dL N 20 Laboratory test 04/06/2016 [facility] TSH (Thyroid Stim 2.17 mcIU/mL N 0.34- [...] ml/min/1.73m^ >=60 Complete Blood Count 04/05/2016 Oswaldo Emma(fma) WBC 9.1 x10^3/UL 3.6 -9.6 RBC 5.04 x10^6/UL 3.90-5.70 HGB 14.4 g/dL 12.1-17.2 HCT 42 % 36-50 MCV 84.0 fL 82.2-97.4 MCH 28.6 pg 27.6-33.3 MCHC 34.2 g/dL 33.0-35.5 RDW 15.4 % High 11.6-13.7 PLT 199 x10^3/UL 150-400 MPV 5.6 fL Low 7.4-10.4 Gran # 6.4 x10^3/UL 1.5-7.2 Lymph# 1.9 x10^3/UL 0.7-4.9 [place]# 0.8 x10^3/UL 0.1-0.9 Gran % 69.5 % 42.2-75.2 Lymph % 21.0 % 20.5-51.1 [place]% 9.5 % High 1.7-9.3 Laboratory test finding 04/05/2016 [facility] Emma(a) TSH 1.70 mIU/L 0.50-6.00 LDL, Direct 102 mg/dL 0-130 Laboratory test 04/05/2016 [facility] Hemoglobin A1c (Fma) 5.5 % 4.1-5.7 finding [...] 5 Kidney failure <15 (or dialysis) 12 [place] Severe Sepsis and Septic Shock Management Bundle [...] 5 Kidney failure <15 (or dialysis) 15 [facility] Severe Sepsis and Septic Shock Management Bundle [...] mg/dL Procedures Date Code Description Status 04/07/2012 [id number] Colonoscopy Completed Encounters Type Date Location Provider Dx Diagnosis Office Visit 09/11/2018 Main Office Bruce Humphrey Z00.00 Encntr for general 3:00p MD [place] adult medical exam w/o abnormal findings N52.8 Other male erectile dysfunction Office Visit 06/19/2017 4:20p Main Office Bruce Humphrey F31.9 Bipolar disorder, MD [place] unspecified Office Visit 02/17/2017 2:00p [place] Chanda Verma J06.9 Acute upper Office Afnp-C respiratory infection, unspecified R05 Cough Office Visit 12/19/2016 11:20a Main Office Sabine Skinner I25.118 Athscl heart Joey disease of [place] cor art w oth ang pctrs Office [...] Office Visit 12/02/2015 10:00a Main Office Kathi Potter N52.8 Other male erectile SOLUTION LEAD dysfunction Office Visit 05/02/2015 3:00p Main Office Kathi Potter J01.90 Acute sinusitis, SOLUTION LEAD unspecified Office Visit 02/28/2015 11:00a Main Office Chanda M54.5 Low back pain [place], Afnp-C Office Visit 02/15/2015 2:20p Main Office Yaya Silevstre M.D. Z00.00 Encntr for general adult medical exam w/o abnormal findings Plan of Treatment 09/11/2018 - Bruce Groves MDZ00.00 Encounter for general adult medical examination without abnoN52.8 Other male erectile dysfunctionNew Medication: Tadalafil 20 mg - take 1 tablet by mouth every day as neededAllComments: Medication Management Patient Understands medications he's taking? Yes No Are there Barriersto Adherence? Yes No Has the patient been asked about herbal supplements and therapies, and OTC meds? Yes No
--- OUTSIDE RECORDS SUMMARY | 2018-11-02 17:27 | XMS REPORT | Continuity of Care Document ---
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 [place] [address] Problems Active Problems Provider Date Hyperlipidemia Sabine Skinner M.D. Onset: 04/05/2016 Bipolar disorder Sabine Skinner M.D. Onset: 04/05/2016 Impaired fasting glycaemia Sabine Skinner M.D. Onset: 04/10/2016 Coronary atherosclerosis Sabine Skinner M.D. 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 Tobacco Use Start: Unknown End: Former Cigarette Smoker Unknown ETOH Use Social Alcohol Recreational Drug Use Denies Drug Use Tobacco Use Start: Unknown End: Patient is a former smoker Unknown Smoking Status Reviewed: 10/20/18 Patient is a former smoker Exercise Type/Frequency Exercises rarely Allergies, Adverse Reactions, Alerts Description No Known Drug Allergies Medications Active Medications SIG Qnty Indications Ordering Date Provider Valacyclovir HCL take 1 tablet by 14tabs G51.0 Bruce Humphrey 10/26/2018 500mg mouth twice a MD [place] Tablets day Tadalafil take 1 tablet by 6Tablet N52.8 [...] Unknown 81mg Tablets DR day History Medications Amoxicillin take one by mouth 14tabs J03.90 Emma Diallo 10/15/2018 - 875mg Tablets twice daily for 7 Jacobo, 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 12/19/2016 Azithromycin 2 tabs today, 6tabs R05 Sabine Skinner, 04/05/2016 - 250mg then 1 tab daily M.D. 06/07/2016 Tablets for next 4 days Cialis 1 tablet 30 min 10tabs N52.8 Kathi Potter, 02/15/2016 - 20mg Tablets before sexual [facility] 12/19/2016 activity, will last 36 hr Wellbutrin XL 1 by mouth every 30tabs Bruce Vásquez 01/23/2016 - 300mg day Joey Elias 12/19/2016 Tablets ER 24HR Cialis take 1 tablet 30tabs N52.8 Kathi Potter, 12/02/2015 - 5mg Tablets every day as [facility] 02/15/2016 directed Cheratussin ac 1-2 teaspoon 120ml Kathi Potter, 05/05/2015 - every 6h [facility] 05/24/2015 100-10mg/5ML Solution Azithromycin take 2 tablets by 12tabs J01.90 Kathi Potter, 05/02/2015 - 250mg mouth x 3d then [facility] 05/24/2015 Tablets take 1 tablet daily for next 6 days Tramadol HCL 1-2 by mouth 30tabs Chanda 03/01/2015 - 50mg Tablets every 6 hours as [place] Verma 05/24/2015 needed Cyclobenzaprine HCL 1 by mouth three 30tabs M54.5 Chanda 02/28/2015 - 10mg times a day as [place] Verma 03/10/2015 Tablets needed Physical Therapy treatment and M54.5 Chanda 02/28/2015 - evaluation of l [place] Verma 05/24/2015 back pain Vitamin C 1 by mouth daily Yaya Silvestre M.D. 02/15/2015 - 12/01/2015 Wellbutrin SR 1 by mouth qd 30tabs Unknown - 300 Tablets 01/23/2016 ER 12HR Zoloft 1 by mouth every 90tabs Emma Diallo - 100mg Tablets day IDA Centeno 06/19/2018 Latuda 1 by mouth every Unknown - 40mg Tablets day 05/02/2015 Atorvastatin Calcium 1 by mouth every Unknown - day 03/18/2016 Tablets Trazodone HCL take 1 tablet at 30tabs Bruce Vásquez - 300mg bedtime Joey Elias 03/18/2016 Tablets Toprol XL 1 by mouth every Unknown - 25mg Tablets ER day 09/11/2018 24HR Wellbutrin SR 1 by mouth every Unknown - 150mg day 09/11/2018 Tablets ER 12HR Immunizations CPT Code Status Date Vaccine Lot # [id number] Given 06/07/2016 Zostivax [id number] Given 06/07/2016 Tdap Tetanus, W Pertussis [id number] Given 01/10/2016 Influenza Vac, Quadrivalent, Slit Virus, Im Vital Signs Date Vital Result Comment 10/26/2018 4:50pm BP Systolic 116 mmHg BP Diastolic 60 mmHg Heart Rate 64 /min Body Temperature 98.6 F Respiratory Rate 12 /min Height 69.25 inches 5'9.25" Weight 176.00 lb BMI (Body Mass Index) 25.8 kg/m2 10/20/2018 4:28pm BP Systolic 138 mmHg BP [...] Result H/L Range Note Laboratory test 10/15/2018 [facility] Quickstrep negative Negative finding (607)- - Laboratory test 03/28/2018 [facility] Creatine 161 U/L N 10-223 finding Kinase(CK) Lipid Profile 03/28/2018 [facility] Triglycerides 150 mg/dL 1 (Trig/Chol/HDL) Cholesterol 132 mg/dL 2 HDL Cholesterol 29.8 mg/dL 3 LDL Cholesterol 72 mg/dL 4 Comp Metabolic Panel 03/28/2018 [facility] Sodium 140 mmol/L N 135-145 Potassium 4.4 [...] Egfr Non- 92.9 >60 Egfr 112.4 >60 5 Laboratory test finding 04/03/2017 [facility] Alt (SGPT) 34 U/L N 7-52 Ast (Sgot) 21 U/L N 13-39 Lipid Profile (Trig/Chol/HDL) 04/03/2017 [facility] Triglycerides 163 mg/dL 6 Cholesterol 164 mg/dL 7 HDL Cholesterol 33.5 mg/dL 8 LDL Cholesterol 98 mg/dL 9 Laboratory test 12/15/2016 [facility] D Dimer Quantitative < 200 ng/mL N Less Than 230 10 finding Comp Metabolic 12/15/2016 [facility] Sodium 138 mmol/L N 133-145 Panel Potassium [...] N >60 11 Laboratory test finding 12/15/2016 [facility] Troponin I 0.00 ng/mL N <0.04 Lactic Acid 1.5 mmol/L N 0.5-2.0 12 CBC Auto Diff 12/15/2016 [facility] White Blood Count 7.5 10^3/uL N 3.5-10.8 [...] % 0 N Laboratory test finding 06/07/2016 Osw[facility] Emma(fma) PSA 2.3 ng/mL 0.0 -4.0 Complete Blood Count 06/07/2016 [facility] Emma(fma) WBC 7.9 x10^3/UL 3.6 -9.6 RBC 5.40 x10^6/UL 3.90-5.70 HGB 15.1 g/dL 12.1-17.2 HCT 46 % 36-50 MCV 86.0 fL 82.2-97.4 MCH 27.9 pg 27.6-33.3 MCHC 32.5 g/dL Low 33.0-35.5 RDW 15.1 % High 11.6-13.7 PLT 232 x10^3/UL 150-400 MPV 5.7 fL Low 7.4-10.4 Gran # 5.1 x10^3/UL 1.5-7.2 Lymph# 1.9 x10^3/UL 0.7-4.9 [place]# 0.9 x10^3/UL 0.1-0.9 Gran % 63.3 % 42.2-75.2 Lymph % 25.2 % 20.5-51.1 [place]% 11.5 % High 1.7-9.3 Comprehensive Metabolic 06/07/2016 [...] >60 ml/min/1.73m^ >=60 Laboratory test finding 05/05/2016 [facility] Lipase 16 U/L N 11.0-82.0 C Reactive Protein 52.77 mg/L High < 5.00 13 Comp Metabolic Panel 05/05/2016 [facility] Sodium 133 mmol/L N 133-145 Potassium 4.1 [...] 132.5 N >60 14 Laboratory test 05/05/2016 [facility] Lactic Acid 1.5 mmol/L N 0.5-2.0 15 finding CBC Auto Diff 05/05/2016 [facility] White Blood Count 14.2 10^3/uL High 3.5- [...] Nucleated Red Blood Cells % 0.1 N Comp Metabolic Panel 04/06/2016 [facility] Sodium 138 mmol/L N 133-145 Potassium 4.3 [...] N >60 16 Lipid Profile (Trig/Chol/HDL) 04/06/2016 [facility] Triglycerides 222 mg/dL N 17 Cholesterol 151 mg/dL N 18 HDL Cholesterol 29.6 mg/dL N 19 LDL Cholesterol 77 mg/dL N 20 Laboratory test finding 04/06/2016 [facility] TSH (Thyroid Stim 2.17 mcIU/mL N 0.34-5.60 Horm) CBC Auto Diff 04/06/2016 [facility] White Blood Count 9.8 10^3/uL N 3.5-10.8 [...] Nucleated Red Blood Cells % 0 N Lipid Profile 04/05/2016 [place] Emma(fma) Cholesterol 141 mg/dL 120- 200 Triglycerides 477 mg/dL High 30-200 HDL Cholesterol 30 mg/dL 30-70 LDL (Calculated) 16 CALC 0-129 VLDL Cholesterol 95 mg/dL High 0-50 HDL Risk Factor 4.7 CALC High 0.0-4.4 Comprehensive Metabolic 04/05/2016 Oswaldo [facility]) Sodium 138 mEq/L 134-149 Prof Potassium 4.4 [...] ml/min/1.73m^ >=60 Complete Blood Count 04/05/2016 Oswaldo Carter([facility]) WBC 9.1 x10^3/UL 3.6 -9.6 RBC 5.04 x10^6/UL 3.90-5.70 HGB 14.4 g/dL 12.1-17.2 HCT 42 % 36-50 MCV 84.0 fL 82.2-97.4 MCH 28.6 pg 27.6-33.3 MCHC 34.2 g/dL 33.0-35.5 RDW 15.4 % High 11.6-13.7 PLT 199 x10^3/UL 150-400 MPV 5.6 fL Low 7.4-10.4 Gran # 6.4 x10^3/UL 1.5-7.2 Lymph# 1.9 x10^3/UL 0.7-4.9 [place]# 0.8 x10^3/UL 0.1-0.9 Gran % 69.5 % 42.2-75.2 Lymph % 21.0 % 20.5-51.1 [place]% 9.5 % High 1.7-9.3 Laboratory test finding 04/05/2016 [facility]do Emma(fma) TSH 1.70 mIU/L 0.50-6.00 LDL, Direct 102 mg/dL 0-130 Laboratory test 04/05/2016 [facility] Hemoglobin A1c (Fma) 5.5 % 4.1-5.7 finding (607)- - 1 Desirable: <150 Borderline High: 150-199 High: 200-499 Very High: >500 2 Desirable: <200 Borderline High: 200-239 High: >239 3 Low: <40 Desirable: 40-60 High: >60 4 Desirable: <100 Near Optimal: 100-129 Borderline High: 130-159 High: 160-189 Very High: >189 5 Because ethnic data is not always readily [...] 15-29 5 Kidney failure <15 (or dialysis) 6 Desirable: <150 Borderline High: 150-199 High: [...] 5 Kidney failure <15 (or dialysis) 12 [facility] Severe Sepsis and Septic Shock Management [...] 5 Kidney failure <15 (or dialysis) 15 [facility] Severe Sepsis and Septic Shock Management [...] mg/dL Procedures Date Code Description Status 04/07/2012 [id number] Colonoscopy Completed Encounters Type Date Location Provider Dx Diagnosis Office Visit 10/20/2018 Main Office Chanda Verma J02.9 Acute pharyngitis, 4:15p Afnp-C unspecified Office Visit 10/15/2018 Main Office Emma Centeno J03.90 Acute tonsillitis, 5:00p 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 Office Visit 09/11/2018 Main Office Bruce Humphrey [...] Skinner I25.118 Athscl heart Joey disease of [place] cor art w oth ang pctrs Office Visit 06/07/2016 1:40p [place] Office Sabine Skinner Z00.00 Encntr for [place] general adult medical exam w/o abnormal findings [...] Office Kathi Potter, N52.8 Other male erectile ADJUSTMENT EXAMINER dysfunction Office Visit 05/02/2015 3:00p Main Office Kathi Potter J01.90 Acute sinusitis, ADJUSTMENT EXAMINER unspecified Office Visit 02/28/2015 11:00a Main Office Chanda M54.5 Low back pain [place], Afnp-C Office Visit 02/15/2015 2:20p Main Office Yaya Silvestre M.D. Z00.00 Encntr for general adult medical exam w/o abnormal findings Plan of Treatment 10/26/2018 - Bruce Groves MDG51.0 Andrews's palsyNew Medication: Valacyclovir HCL 500 mg - take 1 tablet by mouth twice a dayNew Labs:[place] Panel Fma, Ordered: 10/26/18C Reactive Protein, Ordered: 10/26/18CBC Electronic (Fma), Ordered: 10/26/18#Herpes I/II Igm Reflex (CTX), Ordered: 10/26/18#Herpes Simplex Type 2 Igg Abs, Ordered: 10/26/18AllComments:Medication Management Patient Understands medications he's taking? Yes No Are there Barriersto Adherence? Yes No Has the patient been asked about herbal supplements and therapies, and OTC meds? Yes No
--- OUTSIDE RECORDS SUMMARY | 2018-11-02 17:27 | XMS REPORT | Continuity of Care Document ---
:1955 External Reference #:[id number] Author Name Emma Centeno NP Address [address] [place] [address] [place] [address] Care Team Providers Name Role Phone Bruce Groves MD Care Team Information Pharmacy Informatics Manager Unavailable Bruce Groves MD Primary Care Physician Unavailable Payers Date Identification Numbers Payment Provider Subscriber Policy Number: [id number] [facility] Name: [facility] [address] [address] PayID: [id number] [place] [address] Effective: 2015 Policy Number: [id number] [facility] Expires: 2017 PayID: [id number] [address] [place] [address] Problems Active Problems Provider Date Hyperlipidemia Sabine Skinner M.D. Onset: 04/05/2016 Bipolar disorder Sabine Skinner M.D. Onset: 04/05/2016 Impaired fasting glycaemia Sabine Skinner M.D. Onset: 04/10/2016 Coronary atherosclerosis Sabine Skinner M.D. 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 Tobacco Use Start: Unknown End: Former Cigarette [...] 09/11/2018 20mg Tablets mouth every day MD Gremain as needed Sertraline HCL Take 1 Tablet [...] Potter, 02/15/2016 - 20mg Tablets before sexual [facility] 12/19/2016 activity, will last 36 hr Wellbutrin XL 1 by mouth every 30tabs Bruce Vásquez 01/23/2016 - 300mg Tablets day Joey Elias 12/19/2016 ER 24HR Cialis take 1 tablet 30tabs N52.8 Kathi Potter, 12/02/2015 - 5mg Tablets every day as [facility] 02/15/2016 directed Cheratussin ac 1-2 teaspoon 120ml Kathi Potter, 05/05/2015 - 100-10mg/5ML every 6h [facility] 05/24/2015 Solution Azithromycin take 2 tablets by 12tabs J01.90 Kathi Potter, 05/02/2015 - 250mg Tablets mouth x 3d then [facility] 05/24/2015 take 1 tablet daily for [...] Zoloft 1 by mouth every 90tabs Emma CTammy - 100mg Tablets day IDA Centeno 06/19/2018 [...] CPT Code Status Date Vaccine Lot # [id number] Given 06/07/2016 Zostivax [id number] Given 06/07/2016 Tdap Tetanus, W Pertussis [id number] Given 01/10/2016 Influenza Vac, Quadrivalent, Slit Virus, [...] H/L Range Note Comp Metabolic Panel 03/28/2018 [facility] Sodium 140 mmol/L N 135-145 Potassium 4.4 [...] 112.4 >60 1 Lipid Profile (Trig/Chol/HDL) 03/28/2018 [facility] Triglycerides 150 mg/dL 2 Cholesterol 132 mg/dL 3 HDL Cholesterol 29.8 mg/dL 4 LDL Cholesterol 72 mg/dL 5 Laboratory test finding 03/28/2018 [facility] Creatine Kinase(CK) 161 U/L N 10- 223 Lipid Profile (Trig/Chol/HDL) 04/03/2017 [facility] Triglycerides 163 mg/dL 6 Cholesterol 164 mg/dL 7 HDL Cholesterol 33.5 mg/dL 8 LDL Cholesterol 98 mg/dL 9 Laboratory test finding 04/03/2017 [facility] Alt (SGPT) 34 U/L N 7-52 Ast (Sgot) 21 U/L N 13-39 Laboratory test 12/15/2016 [facility] D Dimer Quantitative < 200 ng/mL N Less Than 230 10 finding Comp Metabolic 12/15/2016 [facility] Sodium 138 mmol/L N 133-145 Panel Potassium [...] N >60 11 Laboratory test finding 12/15/2016 [facility] Troponin I 0.00 ng/mL N <0.04 Lactic Acid 1.5 mmol/L N 0.5-2.0 12 CBC Auto Diff 12/15/2016 [facility] White Blood Count 7.5 10^3/uL N 3.5-10.8 [...] 0 N Laboratory test finding 06/07/2016 [facility] Emma(a) PSA 2.3 ng/mL 0.0 -4.0 Complete [...] 5.1 x10^3/UL 1.5-7.2 Lymph# 1.9 x10^3/UL 0.7-4.9 [place]# 0.9 x10^3/UL 0.1-0.9 Gran % 63.3 % 42.2-75.2 Lymph % 25.2 % 20.5-51.1 [place]% 11.5 % High 1.7-9.3 Comprehensive Metabolic 06/07/2016 [place] Emma(a) Sodium 139 mEq/L 134-149 Prof Potassium 4.2 [...] >60 ml/min/1.73m^ >=60 Laboratory test finding 05/05/2016 [facility] Lipase 16 U/L N 11.0-82.0 C Reactive Protein 52.77 mg/L High < 5.00 13 Comp Metabolic Panel 05/05/2016 [facility] Sodium 133 mmol/L N 133-145 Potassium 4.1 [...] 132.5 N >60 14 Laboratory test 05/05/2016 [facility] Lactic Acid 1.5 mmol/L N 0.5-2.0 15 finding CBC Auto Diff 05/05/2016 [facility] White Blood Count 14.2 10^3/uL High 3.5- [...] % 0.1 N CBC Auto Diff 04/06/2016 [facility] White Blood Count 9.8 10^3/uL N 3.5-10.8 [...] % 0 N Comp Metabolic Panel 04/06/2016 [facility] Sodium 138 mmol/L N 133-145 Potassium 4.3 [...] N >60 16 Lipid Profile (Trig/Chol/HDL) 04/06/2016 [facility] Triglycerides 222 mg/dL N 17 Cholesterol 151 mg/dL N 18 HDL Cholesterol 29.6 mg/dL N 19 LDL Cholesterol 77 mg/dL N 20 Laboratory test 04/06/2016 [facility] TSH (Thyroid Stim 2.17 mcIU/mL N 0.34- [...] >60 ml/min/1.73m^ >=60 Complete Blood Count 04/05/2016 [place] Emma(a) WBC 9.1 x10^3/UL 3.6 -9.6 RBC 5.04 x10^6/UL 3.90-5.70 HGB 14.4 g/dL 12.1-17.2 HCT 42 % 36-50 MCV 84.0 fL 82.2-97.4 MCH 28.6 pg 27.6-33.3 MCHC 34.2 g/dL 33.0-35.5 RDW 15.4 % High 11.6-13.7 PLT 199 x10^3/UL 150-400 MPV 5.6 fL Low 7.4-10.4 Gran # 6.4 x10^3/UL 1.5-7.2 Lymph# 1.9 x10^3/UL 0.7-4.9 [place]# 0.8 x10^3/UL 0.1-0.9 Gran % 69.5 % 42.2-75.2 Lymph % 21.0 % 20.5-51.1 [place]% 9.5 % High 1.7-9.3 Laboratory test finding 04/05/2016 [facility] Emma(a) TSH 1.70 mIU/L 0.50-6.00 LDL, Direct 102 mg/dL 0-130 Laboratory test 04/05/2016 [facility] Hemoglobin A1c (a) 5.5 % 4.1-5.7 finding (607)- - 1 [...] 5 Kidney failure <15 (or dialysis) 12 [facility] Severe Sepsis and Septic Shock Management [...] 5 Kidney failure <15 (or dialysis) 15 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 Z00.00 Encntr for general adult medical exam w/o abnormal findings Plan of Treatment 10/15/2018 - Emma Centeno, NPJ03.90 Acute tonsillitis, unspecifiedNew Medication:Amoxicillin 875 mg - take one by mouth twice daily for 7 daysNew Labs :Quickstrep, Ordered: 10/15/18Comments:Call [facility] if condition changes/worsens in any wayI expect your symptoms to improve within 48 hours.AllComments:1. Patient has been queried about patient's goals/preferences and functional/ lifestyle goals at relevant visits. If relevant, describe: Has been discussed, noted above2. Treatment goals as explainedto the patient: see above3. Are there barriers to meeting treatment goals? Yes If Yes, please describe: Barriers include possible insurance limits, disease process, and difficulty with lifestyle changes4. Self-Management goals as described to the patient: Yes , see above As always, we strongly encourage a healthy diet and making physical activity a part of your every day life. If you have questions about how or where to start, please contact the office.
== END 2018-11-02 17:50 | disposition left against medical advice (07) ==
LOC: ED 17:10
DX: Z53.21 Procedure and treatment not carried out due to patient leaving prior to being seen by health care provider (principal)
CPT/HCPCS: 99282

== ENCOUNTER → 2019-05-05 06:37 | Day surgery (SDC) | payer OTHER ==
[~2019-05-05 06:37] MED LIST: Acetaminophen TAB* 325 MG PO PRN; Buffered Lidocaine 1% SYRIN* 1 ML/SYRINGE INTRADERM ONE; Lidocaine 1% MPF ** 5 ML VIAL ONE; Lidocaine 2% w/ EPI 1:200,000* 20 ML SDV VIAL ONE; Midazolam* 1 MG/ML 5 ML VIAL (5 MG) ONE; Neomycin/Polymy/Dex OPTH.SUSP* MAXITROL 0.1% 5 ML ONE; Povidone Iodine 5% OPTH* 30 ML BTL ONE; Proparacaine 0.5% OPHTH.SOL* 15 ML BTL ONE; fentaNYL* 50 MCG/ML 2 ML VIAL (100 MCG VIAL) ONE; mitoMYcin 0.2 MG (0.02%) in Sterile Water for Inj* 1 ML OPHTHALMIC SCH
[2019-05-05 08:33] VITALS: BP 120/75
--- NOTE | 2019-05-05 13:21 | OP ---
DATE OF OPERATION: 05/05/19 [facility] DATE OF : 57 SURGEON: Bruce Moses MD ANESTHESIA: Local with MAC. PRE-OP DIAGNOSIS: Uncontrolled glaucoma, right eye. POST-OP DIAGNOSIS: Uncontrolled glaucoma, right eye. OPERATIVE PROCEDURE: Insertion of Xen stent, right eye. COMPLICATIONS: None. DESCRIPTION OF PROCEDURE: The patient was prepped and draped in the usual sterile fashion. Lid speculum was placed in the right eye, traction 6-0 silk suture was placed in the superior limbus and the eye rotated inferiorly. Markings were made at 7 and 2.5 mm positions superiorly on the conjunctivae. The paracentesis made at the 2 o'clock position with a 75 blade. Miostat was instilled into the anterior chamber. The Xen stent was inserted subconjunctivally at the 7 mm nereyda, advancing and passed transsclerally into the anterior chamber at the 2.5 mm nereyda and deployed without difficulty using its buckle wire inserter with immediate bleb development. Mitomycin C 0.2 mg/mL, 0.2 mL was injected superiorly and milked into the fornix with a Weck-Ene. Anterior chamber irrigated thoroughly with balanced salt solution. Gonioprism used to confirm good position of the Xen stent. Traction sutures removed. [id number]/CPS #: [id number] [facility]ENTERAkin
== END | disposition home or self-care (01) ==
LOC: OREAST 06:37
PROVIDERS: ATTEND Specialist
DX: H40.1111 Primary open-angle glaucoma, right eye, mild stage (principal); H52.201 Unspecified astigmatism, right eye; Z87.891 Personal history of nicotine dependence; E78.00 Pure hypercholesterolemia, unspecified; F41.9 Anxiety disorder, unspecified; I25.10 Atherosclerotic heart disease of native coronary artery without angina pectoris; I25.2 Old myocardial infarction; Z86.73 Personal history of transient ischemic attack (TIA), and cerebral infarction without residual deficits; Z95.5 Presence of coronary angioplasty implant and graft
CPT/HCPCS: A9270-GY; C1725; J2250; J3010; J9280

== ENCOUNTER → 2019-05-05 08:44 | Day surgery (SDC) | payer OTHER ==
[2016-05-05 09:45] LABS: ABS Basophils 0.1 10^3/ul (0-0.2); ABS Eosinophils 0.5 10^3/ul (0-0.6); ABS Lymphocytes 1.3 10^3/ul (1.0-4.8); ABS Neutrophils 11.3 10^3/ul (1.5-7.7); ABS Nucleated RBC 0.02 10^3/ul; Eosinophil % 3.7 % (0-6); Hematocrit 44 % (42-52); Hemoglobin 14.9 g/dl (14.0-18.0); Lymphocyte % 8.9 % (25-47); Mean Corpuscular HGB Conc 34 g/dl (31-36); Mean Corpuscular Hemoglobin 28 pg (27-31); Mean Corpuscular Volume 82 fL (80-94); Mean Platelet Volume 7 um3 (7.4-10.4); Nucleated Red Blood Cells % 0.1; Platelet Count 173 10^3/ul (150-450); Red Cell Distribution Width 15 % (10.5-15); White Blood Count 14.2 10^3/ul (3.5-10.8)
--- NOTE | 2016-05-05 09:54 | ED ---
Abdominal Pain/Male - HPI Summary HPI Summary: Pt here w/ LLQ ab pain which started abruptly yesterday afternoon. Does not recall any events leading up to this - reports he had cereal earlier in the day w/o difficulty however since pain started has been nauseous and dry heaving. Pain is focal - no radiation. Worse w/ touching ab and moving in some positions. Last BM 05/02/2016 - usually goes daily but hasn't been eating/ drinking much as he had a URI last week. Denies dysuria, urinary frequency, flank pain. Last ate yesterday. H/o umbilical hernia repair (uncomplicated) - otherwise no abdominal hx. - History of Current Complaint Chief Complaint: EDAbdPain Stated Complaint: LOWER LT ABD PAIN Time Seen by Provider: 05/05/16 09:04 Hx Obtained From: Patient, Family/Remote Sensing Research Scientist - Pain Intensity: 8 - Allergies/Home Medications Allergies/Adverse Reactions: Allergies Allergy/AdvReac Type Severity Reaction Status Date / Time No Known Allergies Allergy Verified 05/05/16 08:54 Home Medications: Home Medications Atorvastatin* [Lipitor*] 20 mg PO BEDTIME 05/05/16 [History Confirmed 05/05/16] Sertraline* [Zoloft*] 100 mg PO DAILY 05/05/16 [History Confirmed 05/05/16] buPROPion TAB* [Wellbutrin TAB*] 100 mg PO DAILY 05/05/16 [History Confirmed ] traZODone TAB* [Desyrel TAB*] 100 mg PO BEDTIME 05/05/16 [History Confirmed ] PMH/Surg Hx/FS Hx/Imm Hx Previously Healthy: Yes Cardiovascular History: Reports: Other Cardiovascular Problems/Disorders - HX: TIA GI History: Reports: Other GI Disorders - umbilical hernia - repaired by Katherine Denies: Hx Cirrhosis, Hx Crohn's Disease, Hx Diverticulosis, Hx Gall Bladder Disease, Hx Gastroesophageal Reflux Disease, Hx Gastrointestinal Bleed, Hx Irritable Bowel, Hx Obstructive Bowel, Hx Ulcer History: Denies: Hx Kidney Infection, Hx Kidney Stones Infectious Disease History: No Infectious Disease History: Denies: Traveled Outside the [place] in Last 30 Days - Family History Known Family History: Positive: Cardiac Disease - Social History Lives: With Family Alcohol Use: Rare Substance Use Type: Reports: Marijuana Hx Tobacco Use: Yes Review of Systems Negative: Fever, Chills ENT: Other - recovering from URI last week - no acute sx at this time Negative: Chest Pain Negative: Shortness Of Breath, Cough Positive: Abdominal Pain - see HPI Genitourinary: Negative Positive: see HPI Musculoskeletal: Negative Negative: Rash Neurological: Negative Psychological: Normal All Other Systems Reviewed And Are Negative: Yes Physical Exam Triage Information Reviewed: Yes Vital Signs On Initial Exam: Initial Vitals Temp Pulse Resp BP Pulse Ox 98.8 F 85 17 147/70 97 05/05/16 08:50 05/05/16 08:50 05/05/16 08:50 05/05/16 08:50 05/05/16 08:50 Vital Signs Reviewed: Yes Appearance: Positive: Well-Appearing, Well-Nourished, Pain Distress - mild at rest - worse w/ exam (see below) Skin: Positive: Warm, Dry - no erythema, no ecchymosis over ab/flank area Head/Face: Positive: Normal Head/Face Inspection Eyes: Positive: Normal, EOMI, Conjunctiva Clear ENT: Positive: Hearing grossly normal, Pharynx normal - mucosa moist. Negative : Nasal congestion, Nasal drainage Neck: Positive: Supple Respiratory/Lung Sounds: Positive: Clear to Auscultation, Breath Sounds Present. Negative: Rales, Rhonchi, Wheezes Cardiovascular: Positive: Normal, RRR, Pulses are Symmetrical in both Upper and Lower Extremities, S1, S2. Negative: Murmur, Rub, Leg Edema Left, Leg Edema Right Abdomen Description: Positive: Distended - throughout - mild, Other: - LUQ and LLQ TTP w/o rebounding. Negative: CVA Tenderness (R), CVA Tenderness (L) Bowel Sounds: Positive: Present Musculoskeletal: Positive: Normal, Strength/ROM Intact Neurological: Positive: Normal, Sensory/Motor Intact, Alert, Oriented to Person Place, Time, CN Intact II-III Psychiatric: Positive: Normal Diagnostics - Vital Signs Vital Signs Temp Pulse Resp BP Pulse Ox 05/05/16 09:35 16 05/05/16 08:50 98.8 F 85 17 147/70 97 - Laboratory Lab Results: Lab Results 05/05/16 Range/Units 09:05 WBC 14.2 H (3.5-10.8) 10^3/ul RBC 5.40 (4.0-5.4) 10^6/ul Hgb 14.9 (14.0-18.0) g/dl Hct 44 (42-52) % MCV 82 (80-94) fL MCH 28 (27-31) pg MCHC 34 (31-36) g/dl RDW 15 (10.5-15) % Plt Count 173 (150-450) 10^3/ul MPV 7 L (7.4-10.4) um3 Neut % (Auto) 79.9 (38-83) % Lymph % (Auto) 8.9 L (25-47) % [place] % (Auto) 7.0 (1-9) % Eos % (Auto) 3.7 (0-6) % Baso % (Auto) 0.5 (0-2) % Absolute Neuts (auto) 11.3 H (1.5-7.7) 10^3/ul Absolute Lymphs (auto) 1.3 (1.0-4.8) 10^3/ul Absolute Monos (auto) 1.0 H (0-0.8) 10^3/ul Absolute Eos (auto) 0.5 (0-0.6) 10^3/ul Absolute Basos (auto) 0.1 (0-0.2) 10^3/ul Absolute Nucleated RBC 0.02 10^3/ul Nucleated RBC % 0.1 Result Diagrams: 05/05/16 09:05 05/05/16 09:05 Lab Statement: Any lab studies that have been ordered have been reviewed, and results considered in the medical decision making process. Re-Evaluation - Re-Evaluation First Eval Change: Unchanged Second Eval Change: Improved - pain briefly improved after 4mg morphine x2; nausea resolved Third Eval Change: Worse - ab pain worse after constrast Fourth Eval Change: Improved - ab pain improved s/p 8mg morphine IV Abdominal Pain Fem Course/Dx - Course Course Of Treatment: Pt presents w/ acute LLQ ab pain which started yesterday afternoon. Associated sx of nausea + dry heaves. H/o umbilica hernia repair. CT was ordered and reveals malrotation of colon with acute appendicitis - elevated WBC and CRP. Spoke w/ Dr. Amador who will meet with pt for admission. - Diagnoses Provider Diagnoses: Appendicitis, Malrotation colon - Provider Notifications Discussed Care Of Patient With: Dr. AMADOR Discharge - Discharge Plan Condition: Stable Disposition: ADMITTED TO [facility]
[2016-05-05 09:56] LABS: Albumin 4.4 g/dL (3.2-5.2); Albumin/Globulin Ratio 1.4 (1-3); BUN/Creatinine Ratio 20.8 (8-20); C Reactive Protein 52.77 mg/L (< 5.00); Calcium 9.4 mg/dL (8.6-10.3); EGFR African American 132.5 (>60); EGFR Non-African American 103.1 (>60); Globulin 3.2 g/dL (2-4); Potassium 4.1 mmol/L (3.5-5.0); Total Bilirubin 0.8 mg/dL (0.2-1.0); Total Protein 7.6 g/dL (6.4-8.9)
[2016-05-05 11:07] LABS: Hepatitis C Antibody Nonreactive (Nonreactive)
--- NOTE | 2016-05-05 12:34 | RAD ---
Indication: Left lower quadrant pain. CT of the abdomen and pelvis was performed after oral and IV contrast administration. Administered 104.8 ml of OMNIPAQUE 300 mgi/ml was given according to hospital protocol. Coronal and sagittal reconstructed images were obtained. The lung bases demonstrate no pleural fluid, nodules or masses. Heart is of normal size without evidence of pericardial effusion. The liver is normal in size. No focal lesions or intrahepatic ductal dilatation is noted. The liver is normal in size. There are no focal lesions or intrahepatic ductal dilatation noted. The gallbladder demonstrates no calcified gallstones. No pericholecystic fluid or wall thickening is identified. Pancreas demonstrates no mass or pancreatic duct dilatation. The spleen is normal in size. No adrenal lesions are noted. The kidneys demonstrate symmetric nephrograms without focal lesions. Aorta and inferior vena cava are unremarkable. There is malrotation of the intestine with the colon predominantly on the left side. There is contrast in the cecum. There is a fecalith in the appendix which is in the left lower quadrant with a dilated tubular fluid-filled structure likely representing appendix. Findings are consistent with acute appendicitis. No evidence of abscess collection is noted. No pelvic adenopathy is noted. Urinary bladder is unremarkable. Prostate and seminal vesicles are unremarkable. IMPRESSION: THERE APPEARS TO BE APPENDICITIS IN THE LEFT LOWER QUADRANT THERE IS MALROTATION OF THE COLON. NO PERIAPPENDICEAL ABSCESS IS NOTED. Findings discussed with LESVIA Morris at 12:30 PM.
--- NOTE | 2016-05-05 15:41 | SURGPN ---
Brief Operative Note - Surgery Procedures: PRE/POST OP DX: LEFT SIDE ACUTE APPENDICITIS PROC: LAP APPENDECTOMY SURG: MECENAS ASSIST: NONE ANES: GET/BYLEBYL EBL: MIN IVF: LR SPEC: APPENDIX DRAIN: NONE COMPL: NONE COND: STABLE, EXTUBATED. TO RR.
[2016-05-05 16:31] VITALS: BP 142/68
--- NOTE | 2016-05-06 01:31 | OP ---
DATE OF SURGERY: 05/05/16 - ROOM #AA-2 DATE OF : 57 SURGEON: Dr. Castañeda MONOMER RECOVERY SUPERVISOR: None. ANESTHESIOLOGIST: Dr. Yousif. ANESTHESIA: General endotracheal. PRE-OP DIAGNOSIS: Left-sided appendicitis. POST-OP DIAGNOSIS: Left-sided appendicitis. OPERATIVE PROCEDURE: Laparoscopic appendectomy. ESTIMATED BLOOD LOSS: Minimal. IV FLUIDS: Crystalloids. SPECIMEN: Appendix. DRAINS: None. COMPLICATIONS: None. COUNTS: Instruments, needle, and sponge counts were correct. OPERATIVE INDICATION: This is a 61-year-old gentleman who presents to the emergency room with 24-hour history of left lower quadrant abdominal pain associated with, nausea, anorexia, and leukocytosis. CT scan in the emergency room revealed appendicitis with malrotation of the colon so that the appendix was lying on the left side. Based on these findings, the patient was brought to the operating room for surgery. DESCRIPTION OF PROCEDURE: The patient was brought to the operating room and placed on the table supine. Sequential compression devices were placed in both lower extremities and general anesthesia was administered. He received appropriate intravenous antibiotics. His abdomen was prepped and draped in the usual sterile fashion. Time-out was performed. Local anesthetic was infiltrated into the skin and soft tissue prior to making each incision. Transumbilical vertical incision was created in an open technique, which was used to access the peritoneal cavity, after which a 12-mm trocar was placed. Carbon dioxide was insufflated to a pressure of 15 mmHg. Under direct visualization, 5-mm trocars were placed in the suprapubic midline and right lower quadrant. Inspection in the left lower quadrant revealed the cecum with a suppurative appendix attached. There was adherent pericolic fat and omentum to this, which was dissected free bluntly. The appendix was elevated and a window created in the mesentry of the appendix at the base. The appendix mesentery was divided with the endo JOHANN stapler with the luna cartridge. The appendix was divided at its base with the endo JOHANN stapler with a rios cartridge. The appendix was placed into an endoscopic retrieval bag and retrieved through the umbilical site. The staple lines was inspected and noted to be intact and hemostatic. The ports were removed under direct visualization and carbon dioxide was released. The umbilicus was closed with 0 Polysorb in [id number] fashion to approximate the fascia. The skin incisions were closed with 4-0 Monocryl in subcuticular fashion. Steri-Strips were applied. The patient tolerated the procedure well and was extubated and transferred to the recovery room in stable condition. CC: Roxanna Saavedra MD * [id number]/[facility] #: [id number] MTDD
--- NOTE | 2016-07-06 15:19 | DS ---
DISCHARGE SUMMARY: DATE OF ADMISSION: 05/05/16 DATE OF DISCHARGE: 05/05/16 DISCHARGE DIAGNOSES: Acute appendicitis and coronary artery disease status post myocardial infarction, status post stent, and depression. PROCEDURE: Laparoscopic appendectomy on 05/05/[address] Castañeda. HOSPITAL COURSE: This 61-year-old gentleman presented to [facility] Emergency Room with abdominal pain and on CT scan imaging was found to have findings of acute appendicitis, which was left-sided based on malrotation of his colon. He was taken emergently to the operating room for laparoscopic appendectomy. Please see the report. Postoperatively, the patient did well. He was discharged from recovery room with preprinted instructions from the [facility] office. His pathology revealed acute necrotizing appendicitis and periappendicitis. He had no tests pending. He was instructed to follow up with [facility] a week following discharge. He was prescribed Percocet for pain and instructed to continue taking his home medications. CC: aSbine Skinner MD* [id number]/[facility] #: [id number] MTDD
[~2019-05-05 08:44] MED LIST changes: -Acetaminophen TAB* 325 MG PO PRN; +Atorvastatin* 20 MG TAB PO SCH; -Buffered Lidocaine 1% SYRIN* 1 ML/SYRINGE INTRADERM ONE; +Bupivacaine 0.5% W/EPI SDV* 30 ML VIAL ONE; +DiMENhydriNATE IV* 50 MG/ML VIAL IV PUSH PRN; +Ibuprofen TAB* 600 MG PO PRN; +Iohexol 300* (CONTRAST) 10 ML SDV IV ONE; +Ketorolac INJ* 30 MG/ML 1 ML VIAL IV PRN; +Ketorolac INJ* 30 MG/ML 1 ML VIAL ONE; +Lactated Ringers 1000 ML Bag* 1,000 ML IV SCH; -Lidocaine 1% MPF ** 5 ML VIAL ONE; +Lidocaine 2% MPF* 2 ML VIAL ONE; -Lidocaine 2% w/ EPI 1:200,000* 20 ML SDV VIAL ONE; -Midazolam* 1 MG/ML 5 ML VIAL (5 MG) ONE; +Morphine INJ** 4 MG/ML 1 ML CARPUJECT IV ONE; +NS 0.9% 1000 ML** 1,000 ML IV ONE; -Neomycin/Polymy/Dex OPTH.SUSP* MAXITROL 0.1% 5 ML ONE; +Ondansetron INJ* 2 MG/ML VIAL IV ONE; +Ondansetron INJ* 2 MG/ML VIAL IV PRN; -Povidone Iodine 5% OPTH* 30 ML BTL ONE; -Proparacaine 0.5% OPHTH.SOL* 15 ML BTL ONE; +Propofol* 10 MG/ML 20 ML BTL IV PUSH ONE; +Sertraline* 100 MG TAB PO SCH; +Simethicone TAB* 80 MG TAB.CHEW PO ONE; +Succinylcholine* 20 MG/ML 10 ML VIAL ONE; +buPROPion TAB* 100 MG PO SCH; +ceFOXitin 2 GM IVPREMIX* 2 GM/50 ML BAG ONE; +diPHENhydraMINE IV* 25 MG in NS 0.9% 50 ML* 50 ML IVPB PRN; +fentaNYL* 50 MCG/ML 2 ML VIAL (100 MCG VIAL) IV PRN; -mitoMYcin 0.2 MG (0.02%) in Sterile Water for Inj* 1 ML OPHTHALMIC SCH; +oxyCODONE/Acetamin 5/325 MG* TAB PO PRN; +traZODone TAB* 100 MG PO SCH
== END | disposition home or self-care (01) ==
LOC: ED 05-05 08:49 → OR 05-05 14:03 → UNDOADMOB 05-05 14:03 → AA 05-05 14:03 → OR 05-05 16:40 → UNDODISOB 05-05 16:40 → OR 08:44
PROVIDERS: ATTEND Surgery
DX: K35.80 Unspecified acute appendicitis (principal); I25.10 Atherosclerotic heart disease of native coronary artery without angina pectoris; Z95.5 Presence of coronary angioplasty implant and graft; Z87.891 Personal history of nicotine dependence; I25.2 Old myocardial infarction; F32.9 Major depressive disorder, single episode, unspecified; Z79.899 Other long term (current) drug therapy; Z86.73 Personal history of transient ischemic attack (TIA), and cerebral infarction without residual deficits; R94.31 Abnormal electrocardiogram [ECG] [EKG]
CPT/HCPCS: 36415; 74177; 80053; 83605; 83690; 85025; 86140; 86803; 88304; 93005; 96374; 96375; 96376; 99284; A9270-GY; C1776; G0378; J0330; J0694; J1885; J2270; J2405; J2704; J3010; Q9967